=== PATIENT | female | born 1990 | race Caucasian/White ===

== ENCOUNTER 2017-07-24 11:17 | Inpatient (IN) | payer OTHER ==
[2017-07-24] MEDS ORDERED: RINGERS SOLUTION,LACTATED 300 ML IV ONE (11:28)
[2017-07-24 12:17] LABS: ABSOLUTE EOSINOPHILS # (AUTO) 0.1 10^3/uL (0.0-0.6); ABSOLUTE LYMPHOCYTES (AUTO) 1.6 10^3/uL (0.5-4.7); ABSOLUTE MONOCYTES (AUTO) 0.7 10^3/uL (0.1-1.4); ABSOLUTE NEUT (AUTO) 4.8 10^3/uL (1.7-8.2); BASOPHILS % (AUTO) 0.4 % (0-2); EOSINOPHILS % (AUTO) 1.3 % (0-6); HEMATOCRIT 35.6 % (36.0-47.0); HEMOGLOBIN 12.5 g/dL (12.0-15.5); HGB HCT DIFFERENCE 1.9; LYMPHOCYTES % (AUTO) 21.7 % (13-45); MEAN CORPUSCULAR HEMOGLOBIN 31.3 pg (27.0-33.4); MEAN CORPUSCULAR VOLUME 89 fl (80-97); MONOCYTES % (AUTO) 9.8 % (3-13); RED BLOOD COUNT 3.99 10^6/uL (3.72-5.28); RED CELL DISTRIBUTION WIDTH 14.1 % (11.5-14.0); SEGMENTED NEUTROPHILS % (AUTO) 66.8 % (42-78); WHITE BLOOD COUNT 7.1 10^3/uL (4.0-10.5)
[2017-07-24] MEDS ORDERED: OXYTOCIN/NORMAL SALINE 20 UNIT/1,000 ML RTUINJ IV PRN (12:18)
[2017-07-24] MEDS ORDERED: LIDOCAINE 1% INJ-PF (10 MG/ML) 30 ML SDV ONE (12:29)
[2017-07-24] MEDS ORDERED: OXYTOCIN/NORMAL SALINE 20 UNIT/1,000 ML RTUINJ ONE (12:29)
[2017-07-24] MEDS ORDERED: MISOPROSTOL 0.2 MG TABLET ONE (12:29)
[2017-07-24] MEDS: RINGERS SOLUTION,LACTATED 1,000 ML IV PRN ×3 (12:38→21:03)
[2017-07-24 12:39] LABS: ALANINE AMINOTRANSFERASE 26 U/L (9-52); ALBUMIN 3.5 g/dL (3.5-5.0); ALKALINE PHOSPHATASE 171 U/L (38-126); ANION GAP 12 (5-19); ASPARTATE AMINO TRANSFERASE 16 U/L (14-36); BILIRUBIN,DIRECT 0.2 mg/dL (0.0-0.4); BILIRUBIN,TOTAL 0.6 mg/dL (0.2-1.3); BLOOD UREA NITROGEN 12 mg/dL (7-20); CARBON DIOXIDE 19 mmol/L (22-30); CHLORIDE 107 mmol/L (98-107); CREATININE RESULT 0.61 mg/dL (0.52-1.25); GLUCOSE 94 mg/dL (75-110); SODIUM 138.2 mmol/L (137-145); TOTAL PROTEIN 6.1 g/dL (6.3-8.2)
[2017-07-24 13:56] LABS: APPEARANCE,URINE CLOUDY; BILIRUBIN,URINE NEGATIVE (NEGATIVE); GLUCOSE, URINE NEGATIVE (NEGATIVE); KETONES,URINE NEGATIVE (NEGATIVE); LEUKOCYTE ESTERASE,URINE NEGATIVE (NEGATIVE); NITRITE,URINE NEGATIVE (NEGATIVE); PROTEIN,URINE NEGATIVE (NEGATIVE); URINE SPECIFIC GRAVITY 1.013; UROBILINOGEN,URINE NEGATIVE mg/dL (<2.0)
[2017-07-24 14:20] LABS: URINE BARBITURATES SCREEN NEGATIVE; URINE METHADONE SCREEN NEGATIVE; URINE OPIATES LOW NEGATIVE; URINE PHENCYCLIDINE SCREEN NEGATIVE
[2017-07-24] MEDS ORDERED: NALBUPHINE HCL INJ 10 MG/1 ML AMPULE INJ ONE (16:36)
[2017-07-24] MEDS ORDERED: PROMETHAZINE HCL INJ 25 MG/1 ML VIAL IV ONE (16:36)
[2017-07-24] MEDS ORDERED: PROMETHAZINE HCL INJ 25 MG/1 ML VIAL ONE (16:40)
[2017-07-24] MEDS ORDERED: NALBUPHINE HCL INJ 10 MG/1 ML AMPULE ONE (16:40)
[2017-07-24] MEDS ORDERED: EPHEDRINE SULFATE INJ 50 MG/1 ML AMPULE ONE (17:36)
[2017-07-24] MEDS ORDERED: FENTANYL/BUPIVACAINE/NS/PF 200 MCG/100 ML RTUINJ EPI ONE (17:37)
[2017-07-24] MEDS ORDERED: BUPIVACAINE HCL 0.25 % INJ/PF (2.5 MG/1 ML) 30 ML VIAL ONE (17:37)
[2017-07-24] MEDS ORDERED: BUPIVACAINE HCL 0.25 % INJ/PF (2.5 MG/1 ML) 30 ML VIAL INFIL ONE (17:45)
[2017-07-24] MEDS ORDERED: BENZOIN/ALOE VERA/STORAX/TOLU TINCTURE 60 ML TP PRN (17:45)
[2017-07-24] MEDS ORDERED: EPHEDRINE SULFATE INJ 50 MG/1 ML AMPULE IV ONE (17:45)
[2017-07-24] MEDS ORDERED: FENTANYL/BUPIVACAINE/NS/PF 200 MCG/100 ML RTUINJ EPI PRN (17:45)
[2017-07-24] MEDS ORDERED: MAG HYDROX/AL HYDROX/SIMETH SUSP 30 ML UDCUP PO ONE (20:59)
[2017-07-24] MEDS ORDERED: MAG HYDROX/AL HYDROX/SIMETH SUSP 30 ML UDCUP ONE (21:02)
[2017-07-24] MEDS: EPHEDRINE SULFATE INJ 50 MG/1 ML AMPULE IV PRN ×2 (21:06→21:07)
[2017-07-25] MEDS ORDERED: ACETAMINOPHEN 650 MG SUPP.RECT PR PRN (00:01)
[2017-07-25] MEDS ORDERED: MAGNESIUM HYDROXIDE SUSP 30 ML UDCUP PO PRN (00:01)
[2017-07-25] MEDS ORDERED: PROMETHAZINE HCL 25 MG SUPP.RECT PR PRN (00:01)
[2017-07-25] MEDS ORDERED: BENZOCAINE/MENTHOL AEROSOL SPRAY 56 ML TOP PRN (00:01)
[2017-07-25] MEDS ORDERED: DIBUCAINE 1% OINTMENT 28 GM TP PRN (00:01)
[2017-07-25] MEDS ORDERED: OXYTOCIN/NORMAL SALINE 20 UNIT/1,000 ML RTUINJ IV PRN (00:01)
[2017-07-25] MEDS ORDERED: MEASLES,MUMPS&RUBELLA VACC/PF 0.5 ML VIAL SUBCUT PRN (00:01)
[2017-07-25] MEDS ORDERED: DIPHENHYDRAMINE HCL 25 MG CAPSULE PO PRN (00:01)
[2017-07-25] MEDS ORDERED: GLYCERIN/WITCH HAZEL LEAF 1 EACH MED..PAD TP PRN (00:01)
[2017-07-25] MEDS ORDERED: PROMETHAZINE HCL INJ 25 MG/1 ML VIAL IV PRN (00:01)
[2017-07-25] MEDS ORDERED: NA PHOS,M-B/NA PHOS,DI-BA (ADULT) 133 ML ENEMA PR PRN (00:01)
[2017-07-25] MEDS ORDERED: ZOLPIDEM TARTRATE 5 MG TABLET PO PRN (00:01)
[2017-07-25] MEDS ORDERED: PROMETHAZINE HCL 25 MG TABLET PO PRN (00:01)
[2017-07-25] MEDS ORDERED: PSEUDOEPHEDRINE HCL 30 MG TABLET PO PRN (00:01)
[2017-07-25] MEDS ORDERED: ACETAMINOPHEN WITH CODEINE #3 TABLET PO PRN ×2 (00:01)
[2017-07-25] MEDS ORDERED: DIPH/PERTUSS(ACELL)/TETANUS VAC/PF 0.5 ML SYR (>=10YO) IM PRN (00:01)
--- NOTE | 2017-07-25 01:58 | Admission Physical ---
Datetime Report Generated by CPN: 07/25/2017 01:58 CURRENT ADMISSION Hx Assessment: The History has been Reviewed and is Current Chief Complaint: Scheduled Induction of Labor Indication for Induction: Other Indication for Induction: Term, Intrauterine Indication for Induction- Other: Gestational diabetes diet controlled Admit Plan: Admit to Unit; Initiate Labor Protocol ALLERGIES Medication Allergies: No Medication Allergies: No Known Allergies (09/06/2014) Latex: No Latex Allergies Food Allergies: None Environmental Allergies: None OBSTETRICAL HISTORY EDC: 07/25/2017 00:00 : 1 Para: 0 Gestational Diabetes: Yes Rh Sensitization: No Incompetent Cervix: No RONDA: No Infertility: No ART Treatment: No Uterine Anomaly: No IUGR: No Hx Previous C/S: No Macrosomia: No Hx Loss/Stillborn: No PIH: No Hx : No Placenta Previa/Abruption: No Depression/PP Depression: No PTL/PROM: No Post Hemorrhage: No Current Procedures: Ultrasound; NST Obstetrical History Comments: G1 - Current SEE RECORDS Alcohol: No Marijuana : No Cocaine: No Other Illicit Drugs: No Cigarettes: Never Smoker. 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 Surgery: No Heart Disease: No Hosp/Surgery: No Autoimmune Disorder: No Anesthetic Complications: No Kidney Disease: No Abnormal Pap Smear: No Neuro/Epilepsy: No Psychiatric Disorders: No Other Medical Diseases: No Hepatitis/Liver Disease: No Significant Family History: No Varicosities/Phlebitis: No Trauma/Violence : No Thyroid Dysfunction: No Medical History Comments: 2006 - Stap Infection Surgery INFECTIOUS HISTORY Gonorrhea: No Genital Herpes: No Chlamydia: No Tuberculosis: No Syphilis: No Hepatitis: No HIV/AIDS Exposure: No Rash or Viral Illness: No HPV: No PHYSICAL EXAM General: Normal HEENT: Deferred Neurologic: Normal Thyroid: Deferred Heart: Normal Lungs: Normal Breast: Normal Back: Normal Abdomen: Normal Genitourinary Exam: Normal Extremities: Normal DTRs: Normal Pelvic Type: Adequate Vital Signs: Reviewed Details Vital Signs: mild range diastolic x2 VAGINAL EXAM Dilatation: 3 Effacement: 90 Station: -2 MEMBRANES Membranes: Ruptured Amniotic Fluid Color: Clear FETUS A EGA: 39.6 Monitoring: External US FHR- Baseline: 135 Variability: Moderate 6-25bpm Accelerations: 15X15 Decelerations: Early; Variable Presentation: Vertex Admit Comment: 26yo @ 39w6d into L_D for IOL. complicated by GDM A1 and Rh negative otherwise uncomplicated . GBS neg. Pt. reports +FM and irregular contractions x2 days increasing in intensity and then at 7min apart this am. Denies LOF/bleeding. During cervical exam/stripping of membranes pt. ruptured-clear fluid as noted. Continue IOL with pitocin as planned. Pt. and asked questions and verbalized understanding. PLANS FOR LABOR AND DELIVERY Labor and Delivery: None Pain Management: None Feeding Preference: Both Benefit of Breast Feed Discussed: Yes Circumcision: Yes INFORMED CONSENT Assignment: Jordana Marie MD Signature: with User ID: Davis : with User ID: [email or web address]
--- NOTE | 2017-07-25 02:24 | Delivery Summary ---
Del Sum A-C Datetime Report Generated by CPN: 07/25/2017 02:23 DELIVERY PERSONNEL DELIVERY PERSONNEL: [id number] Delivery Doctor:: Jordana Marie MD Labor and Delivery Nurse:: Maame Davies RNplanting machine crewman Nurse:: Melissa Stokes RN Buckle Sorter:: Estefania Bellamy RN Collection Development Librarian/RESPIRATORY CLINICIAN: Sury Griffin, ST MATERNAL INFORMATION Delivery Anesthesia: Epidural Medications After Delivery: Pitocin Bolus-Please Comment Estimated Blood Loss (ml): 200 Maternal Complications: None LABOR SUMMARY EDC: 07/25/2017 00:00 No. Babies in Womb: 1 Attempted: No Labor Anesthesia: Epidural LABOR INFORMATION Reason for Induction: Maternal Diabetes Onset of Labor: 07/24/2017 15:19 Complete Dilatation: 07/24/2017 23:07 Oxytocin: Induction Group B Beta Strep: negative Antibiotics # of Doses: 0 Steroids Given: None Reason Steroids Not Administered: Not Applicable MEMBRANES Membranes Rupture Method: Artificial Rupture of Membranes: 07/24/2017 15:19 Length of Rupture (hr): 8.23 Amniotic Fluid Color: Clear Amniotic Fluid Amount: Moderate Amniotic Fluid Odor: Normal STAGES OF LABOR Stage 1 hr: 7 Stage 1 min: 48 Stage 2 hr: 0 Stage 2 min: 26 Stage 3 hr: 0 Stage 3 min: 4 Total Time in Labor hr: 8 Total Time in Labor min: 18 VAGINAL DELIVERY Episiotomy: None Laceration #1: Perineal; Vaginal (Annotations: Data stored by [facility] on behalf of user) Laceration Extension #1: Third Degree, IIIb (Greater than 50 percent ext anal sphincter thickness torn) Laceration Repair: Yes Laceration Repair Note: 2-0 chromic repaired in normal fashion Sponge Count Correct: N/A Sharps Count Correct: Yes CSECTION DELIVERY Primary Indication: N/A Secondary Indication: N/A CSection Incidence: N/A Labor: N/A Elective: N/A CSection Incision: N/A BABY A INFORMATION Delivery Date/Time: 07/24/2017 23:33 Method of Delivery: Vaginal Born in Route : No : N/A Forceps: N/A Vacuum Extraction: N/A Shoulder Dystocia : No PRESENTATION/POSITION BABY A Presentation: Cephalic Cephalic Presentation: Vertex Vertex Position: Left Occipital Anterior Breech Presentation: N/A PLACENTA INFORMATION BABY A Placenta Delivery Time : 07/24/2017 23:37 Placenta Method of Delivery: Spontaneous Placenta Status: Delivered SCORES BABY A Heart Rate 1 min: >100 bpm Resp Effort 1 min: Slow, Irregular Reflex Irritability 1 min: Cough or Sneeze or Pulls Away Muscle Tone 1 min: Active Motion Color 1 min: Body [place], Extremities Blue Resuscitation Effort 1 min: Tactile Stimulation SCORE 1 MIN: 8 Heart Rate 5 min: >100 bpm Resp Effort 5 min: Good Cry Reflex Irritability 5 min: Cough or Sneeze or Pulls Away Muscle Tone 5 min: Active Motion Color 5 min: Body [place], Extremities Blue Resuscitation Effort 5 min: Tactile Stimulation SCORE 5 MIN: 9 INFORMATION BABY A Gestational Age at Delivery: 39.6 Gestational Status: Full Term- 39- 40.6 Weeks Outcome : Liveborn Condition : Stable Sex: Male IDENTIFICATION BABY A Infant Verification Date/Time: 07/24/2017 23:41 ID Band Number: [id number] Mother's Name Verified: Yes Infant RN Verifying : S. Lattibeaudeir, RN Additional Verifying Personnel: DBelinda Matilde, RESPIRATORY CLINICIAN/US WEIGHT/LENGTH BABY A Infant Birthweight (gm): 4150 Weight (lb): 9 Weight (oz): 2 Length (in): 20.50 Infant Length (cm): 52.07 CORD INFORMATION BABY A No. Cord Vessels: 3 Nuchal Cord : N/A Cord Blood Taken: Yes-For Eval (Mom's Blood Type - or O+) Suction: Mouth; Nose ASSESSMENT BABY A Infant Complications: Meconium Infant Complications- Other: meconium noted upon delivery Physical Findings at Delivery: Caput Succedaneum; Molding of the Head Respirations: Appears Normal Health Insurance Assessor/ALS Called : No Care By: Shari Bellamy RN Transferred To: Remains with Mother BABY B INFORMATION : N/A SIGNATURES Signature: with User ID: [email or web address]
[2017-07-25] MEDS: IBUPROFEN 800 MG TABLET PO SCH ×3 (06:05→21:32)
--- NOTE | 2017-07-25 08:53 | PDOC PROGRESS REPORT ---
Subjective-OB Subjective: Post Delivery Day: 1 26 year old. Denies any needs at this time, voiding without difficulty, tolerating diet, pain is well controlled. Physical Exam (OB) Vital Signs: Temp Pulse Resp BP Pulse Ox 98.1 F 77 18 110/70 99 07/25/17 07:57 07/25/17 07:57 07/25/17 02:06 07/25/17 07:57 07/25/17 07:57 Intake & Output 07/24/17 07/25/17 07/26/17 06:59 06:59 06:59 Weight 77.35 kg - Lochia Lochia Amount: Scant < 10 ml Lochia Color: Rubra/Red - Abdomen Description: Tender, Soft Hernia Present: No Fundal Description: Firm, Midline Fundal Height: u/u - u/2 Objective-Diagnostic Laboratory: 07/24/17 12:00 07/24/17 12:00 07/24/17 07/24/17 07/24/17 11:29 12:00 12:00 WBC 7.1 RBC 3.99 Hgb 12.5 Hct 35.6 L MCV 89 MCH 31.3 MCHC 35.0 RDW 14.1 H Plt Count 168 Seg Neutrophils % 66.8 Lymphocytes % 21.7 Monocytes % 9.8 Eosinophils % 1.3 Basophils % 0.4 Absolute Neutrophils 4.8 Absolute Lymphocytes 1.6 Absolute Monocytes 0.7 Absolute Eosinophils 0.1 Absolute Basophils 0.0 Sodium 138.2 Potassium 4.0 Chloride 107 Carbon Dioxide 19 L Anion Gap 12 BUN 12 Creatinine 0.61 Est GFR ( Amer) > 60 Est GFR (Non-Af Amer) > 60 Glucose 94 Calcium 9.0 Total Bilirubin 0.6 AST 16 ALT 26 Alkaline Phosphatase 171 H Total Protein 6.1 L Albumin 3.5 Urine Color YELLOW Urine Appearance CLOUDY Urine pH 6.0 Ur Specific Umpire 1.013 Urine Protein NEGATIVE Urine Glucose (UA) NEGATIVE Urine Ketones NEGATIVE Urine Blood NEGATIVE Urine Nitrite NEGATIVE Ur Leukocyte Esterase NEGATIVE Blood Type Antibody Screen 07/24/17 12:00 WBC RBC Hgb Hct MCV MCH MCHC RDW Plt Count Seg Neutrophils % Lymphocytes % Monocytes % Eosinophils % Basophils % Absolute Neutrophils Absolute Lymphocytes Absolute Monocytes Absolute Eosinophils Absolute Basophils Sodium Potassium Chloride Carbon Dioxide Anion Gap BUN Creatinine Est GFR ( Amer) Est GFR (Non-Af Amer) Glucose Calcium Total Bilirubin AST ALT Alkaline Phosphatase Total Protein Albumin Urine Color Urine Appearance Urine pH Ur Specific Umpire Urine Protein Urine Glucose (UA) Urine Ketones Urine Blood Urine Nitrite Ur Leukocyte Esterase Blood Type O NEGATIVE Antibody Screen NEGATIVE Assessment and Plan(PN) - Assessment and Plan (1) Vaginal delivery Is this a current diagnosis for this admission?: Yes Plan: routine pp care - Time Spent with Patient Time with patient: Less than 15 minutes Critical Time spent with patient: Less than 15 minutes Medications reviewed and adjusted accordingly: Yes - Disposition Anticipated Discharge: Home Within: within 48 hours
[2017-07-25] MEDS: FAMOTIDINE 20 MG TABLET PO SCH ×2 (09:23→21:32)
[2017-07-25] MEDS: FERROUS SULFATE 325 MG TABLET PO SCH ×2 (09:23→18:51)
[2017-07-25] MEDS: DOCUSATE SODIUM 100 MG CAPSULE PO SCH ×2 (09:23→18:51)
[2017-07-25] MEDS ORDERED: SENNOSIDES/DOCUSATE 8.6-50 MG 1 EACH TABLET PO SCH (10:00)
[2017-07-25] MEDS ORDERED: PRENATAL VITAMIN W DHA CAPSULE PO SCH (10:00)
--- NOTE | 2017-07-25 14:04 | Warning Signs in Babies ---
VOD Warning Signs Datetime Report Generated by [facility]: 07/25/2017 14:04 VOD - Warning Signs in Babies: Needs to be viewed. (07/25/2017 14:02:Ciera Ziegler)
[2017-07-26] MEDS: IBUPROFEN 800 MG TABLET PO SCH (05:41)
[2017-07-26 07:50] LABS: HEMATOCRIT 31.7 % (36.0-47.0); HEMOGLOBIN 10.9 g/dL (12.0-15.5); MEAN CORPUSCULAR HEMOGLOBIN 31.7 pg (27.0-33.4); MEAN CORPUSCULAR HGB CONC 34.5 g/dL (32.0-36.0); MEAN CORPUSCULAR VOLUME 92 fl (80-97); RED BLOOD COUNT 3.45 10^6/uL (3.72-5.28); RED CELL DISTRIBUTION WIDTH 14.3 % (11.5-14.0); WHITE BLOOD COUNT 10.1 10^3/uL (4.0-10.5)
[2017-07-26 07:54] VITALS: BP 117/78
--- NOTE | 2017-07-26 09:04 | PDOC DISCHARGE SUMMARY ---
Final Diagnosis Discharge Date: 07/26/17 - Final Diagnosis (1) Vaginal delivery Is this a current diagnosis for this admission?: Yes (2) Acute blood loss anemia Is this a current diagnosis for this admission?: Yes Discharge Data - Discharge Medication Home Medications: No122/Iron/Folic Acid [ Multi Tablet] 1 each PO DAILY 07/24/17 Docusate Sodium [Colace 100 mg Capsule] 100 mg PO BID #60 capsule 07/26/17 Ferrous Sulfate [Feosol 325 mg Tablet] 325 mg PO BID #60 tablet 07/26/17 Ibuprofen [Motrin 800 mg Tablet] 800 mg PO Q8 #60 tablet 07/26/17 Gestational Age: 39.6 Reason(s) for Admission: Induction of Labor, Gestional Diabetes Procedures: NST Intrapartum Procedure(s): Spontaneous Vaginal Delivery Complication(s): Laceration-Perineal Laceration-Degree: 3rd - Data Baby 1 Male at 1 minute: 8 at 5 minutes: 9 Weight: 4150 kg Home with Mother: Yes Complications: No - Diagnosis Test Laboratory: Temp Pulse Resp BP Pulse Ox 97.9 F 74 16 117/78 100 07/26/17 07:06 07/26/17 07:06 07/26/17 07:06 07/26/17 07:06 07/26/17 07:06 07/24/17 07/24/17 07/26/17 11:29 12:00 07:09 RBC 3.99 3.45 L Hgb 12.5 10.9 L Hct 35.6 L 31.7 L Urine Opiates Screen NEGATIVE - Discharge information/Instructions Discharge Activity: Activity As Tolerated, Pelvic Rest, No tub bath Discharge Diet: Regular Disposition: HOME, SELF-CARE Follow up with: [facility] in: 4, Weeks - laceration 3 b
== END 2017-07-26 11:45 | disposition home or self-care (01) | DRG 775 ==
LOC: LR 11:17 → 2N 07-25 01:56
PROVIDERS: ADMIT Obstetrics & Gynecology; ATTEND Obstetrics & Gynecology
PROC: 10E0XZZ Delivery of Products of Conception, External Approach (ICD-10-PCS; principal; 2017-07-24)
PROC: 0DQR0ZZ Repair Anal Sphincter, Open Approach (ICD-10-PCS; 2017-07-24)
PROC: 4A1HXCZ Monitoring of Products of Conception, Cardiac Rate, External Approach (ICD-10-PCS; 2017-07-24)
DX: O24.420 Gestational diabetes mellitus in childbirth, diet controlled (principal); O70.22 Third degree perineal laceration during delivery, IIIb; D62 Acute posthemorrhagic anemia; O99.02 Anemia complicating childbirth; O77.0 Labor and delivery complicated by meconium in amniotic fluid; Z37.0 Single live birth; Z3A.39 39 weeks gestation of pregnancy; Z88.0 Allergy status to penicillin
CPT/HCPCS: 36415; 80053; 80307; 81005; 85025; 85027; 86592; 86850; 86900; 86901; J2300; J2550; J2590; J3490